=== PATIENT | female | born 1990 | race Caucasian/White ===

== ENCOUNTER 2017-08-11 21:36 | Emergency (ER) | payer MEDICAID ==
[~2017-08-11] VITALS: Ht 167.6 cm; Wt 82.0 kg
[~2017-08-11 21:36] MED LIST: ADVIL
[2017-08-11 21:57] VITALS: BP 110/55
== END 2017-08-12 02:30 | disposition left against medical advice (07) ==
LOC: ER 21:41
DX: Z53.21 Procedure and treatment not carried out due to patient leaving prior to being seen by health care provider (principal)